=== PATIENT | female | born 2000 | race Two or more races ===

== ENCOUNTER 2021-12-31 17:33 | Emergency (ER) | payer OTHER ==
[~2021-12-31] VITALS: Ht 165.1 cm; Wt 62.1 kg
[2021-12-31] MEDS ORDERED: TUSSIN100 MG/51 PO (20:11)
[2021-12-31] MEDS ORDERED: ZITHROMAX500 MG PO (20:11)
[2021-12-31] MEDS ORDERED: ONDANSETRON ODT8 MG PO (20:11)
== END 2021-12-31 20:19 | disposition home or self-care (01) ==
LOC: ER 17:33
DX: O21.8 Other vomiting complicating pregnancy (principal); O98.511 Other viral diseases complicating pregnancy, first trimester; B33.8 Other specified viral diseases; Z3A.17 17 weeks gestation of pregnancy; Z20.822 Contact with and (suspected) exposure to COVID-19

== ENCOUNTER 2022-04-16 16:10 | Inpatient (IN) | payer OTHER ==
[~2022-04-16] VITALS: Ht 170.2 cm; Wt 70.8 kg
[~2022-04-16 16:10] MED LIST: ONDANSETRON ODT8 MG PO; TUSSIN100 MG/51 PO; ZITHROMAX500 MG PO
[2022-04-16] MEDS ORDERED: IRON236 MG PO (16:59)
[2022-04-16] MEDS ORDERED: PRENATAL TABLE1 EAC1 PO (16:59)
== END 2022-04-19 15:47 | disposition home or self-care (01) | DRG 831 ==
LOC: LDR 16:10
PROVIDERS: ADMIT Specialist; ATTEND Specialist
PROC: 4A1HXCZ Monitoring of Products of Conception, Cardiac Rate, External Approach (ICD-10-PCS; principal; 2022-04-16)
DX: O30.093 Twin pregnancy, unable to determine number of placenta and number of amniotic sacs, third trimester (principal); O60.03 Preterm labor without delivery, third trimester; Z3A.32 32 weeks gestation of pregnancy; Z20.822 Contact with and (suspected) exposure to COVID-19

== ENCOUNTER 2022-05-12 12:17 | Inpatient (IN) | payer OTHER ==
[~2022-05-12] VITALS: Ht 170.2 cm; Wt 2.3 kg
[~2022-05-12 12:17] MED LIST changes: +IRON236 MG PO; +PRENATAL TABLE1 EAC1 PO
[2022-05-15] MEDS ORDERED: COLACE100 MG PO (13:17)
[2022-05-15] MEDS ORDERED: IBU800 MG PO (13:17)
== END 2022-05-15 14:22 | disposition home or self-care (01) | DRG 786 ==
LOC: LDR 12:17 → O/R 16:45 → OB/GYN 18:59
PROVIDERS: ADMIT Specialist; ATTEND Specialist
PROC: 4A1HXCZ Monitoring of Products of Conception, Cardiac Rate, External Approach (ICD-10-PCS; 2022-05-12)
PROC: 10D00Z1 Extraction of Products of Conception, Low, Open Approach (ICD-10-PCS; principal; 2022-05-12 15:00)
DX: O36.5931 Maternal care for other known or suspected poor fetal growth, third trimester, fetus 1 (principal); O60.14X2 Preterm labor third trimester with preterm delivery third trimester, fetus 2; O30.043 Twin pregnancy, dichorionic/diamniotic, third trimester; Z3A.36 36 weeks gestation of pregnancy; Z37.2 Twins, both liveborn

== ENCOUNTER 2022-09-20 06:55 | Day surgery (SDC) | payer OTHER ==
[~2022-09-20] VITALS: Ht 167.6 cm; Wt 59.0 kg
[~2022-09-20 06:55] MED LIST changes: +COLACE100 MG PO; +IBU800 MG PO
== END 2022-09-20 20:50 | disposition home or self-care (01) ==
LOC: CIR.AMB 06:55
PROVIDERS: ATTEND Specialist
DX: N72 Inflammatory disease of cervix uteri (principal); Z20.822 Contact with and (suspected) exposure to COVID-19